=== PATIENT | male | born 1970 | race Caucasian/White ===

== ENCOUNTER 2017-10-21 16:05 | Emergency (ER) | payer BC ==
[2017-10-21] MEDS ORDERED: Ondansetron ODT TAB* 4 MG PO ONE (16:18)
[2017-10-21 16:21] VITALS: BP 148/87
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
--- NOTE | 2017-10-21 17:04 | RAD ---
Indication: Back pain. CT of the thoracic spine was obtained in the axial plane. Sagittal and coronal reconstructed images were obtained. Fracture of the C7 spinous process is noted. The remainder of the thoracic vertebra demonstrates no definite fracture. Lamina and pedicles appear intact. Spinous processes appear intact. IMPRESSION: Fracture of C7 spinous process. Remainder of the thoracic spine is otherwise unremarkable..
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
== END 2017-10-21 17:54 | disposition home or self-care (01) ==
LOC: UCEAST 16:05
DX: S12.601A Unspecified nondisplaced fracture of seventh cervical vertebra, initial encounter for closed fracture (principal); S12.501A Unspecified nondisplaced fracture of sixth cervical vertebra, initial encounter for closed fracture; S06.0X0A Concussion without loss of consciousness, initial encounter; W17.89XA Other fall from one level to another, initial encounter; Y93.16 Activity, rowing, canoeing, kayaking, rafting and tubing; Y92.828 Other wilderness area as the place of occurrence of the external cause; R11.2 Nausea with vomiting, unspecified; R53.83 Other fatigue; M79.662 Pain in left lower leg; I10 Essential (primary) hypertension
CPT/HCPCS: 70450; 71046; 72125; 72128; 99212; A9270-GY; G0463